=== PATIENT | female | born 1995 | race Two or more races ===

== ENCOUNTER 2019-05-23 12:34 | Emergency (ER) | payer MEDICAID ==
[~2019-05-23] VITALS: Ht 154.9 cm; Wt 56.7 kg
[~2019-05-23 12:34] MED LIST: NORCO1 TA2 PO
[2019-05-23 12:40] VITALS: Ht 154.9 cm; Wt 56.7 kg
[2019-05-23 13:09] VITALS: BP 108/73
== END 2019-05-23 13:09 | disposition home or self-care (01) ==
LOC: ED 12:34
DX: S61.432A Puncture wound without foreign body of left hand, initial encounter (principal); I10 Essential (primary) hypertension; W31.1XXA Contact with metalworking machines, initial encounter; Y93.89 Activity, other specified; Y99.8 Other external cause status; Y92.89 Other specified places as the place of occurrence of the external cause
CPT/HCPCS: 90715